=== PATIENT | female | born 1975 | race Caucasian/White ===

== ENCOUNTER 2016-10-29 14:42 | Emergency (ER) | payer OTHER ==
[~2016-10-29] VITALS: Ht 162.6 cm; Wt 87.5 kg
[2016-10-29 15:03] VITALS: BP 153/85
[2016-10-29] MEDS ORDERED: LOSA25TA22 PO (15:04)
--- NOTE | 2016-10-29 15:53 | NUR ---
Patient ambulated to bed 03.
--- NOTE | 2016-10-29 15:57 | NUR ---
41F BIB SELF C/O SHARP, LEFT MID-ABDOMINAL PAIN, NON-RADIATING, 8/10 X TODAY; PT STATES HAS NAUSEA, BUT DENIES V/D AT THIS TIME; ABDDOMEN SOFT, NON-TENDER, ACTIVE BOWEL SOUNDS X 4 QUADRANTS; PT A&OX4, PERRLA, BL LUNG SOUNDS CLEAR, RR EVEN/UNLABORED, SKIN IS WARM/DRY/INTACT AT THIS TIME; PT RESTING IN BED W/ HOB ELEVATED AND IN LOWEST POSITION; POSTIONED FOR COMFORT; ER MD MADE AWARE OF STATUS. WILL CONTINUE TO MONITOR.
--- NOTE | 2016-10-29 16:02 | NUR ---
Dr. Jung evaluating patient at bedside.
[2016-10-29] MEDS ORDERED: NACL 0.9% 1,000 ML IV ONE (16:20)
[2016-10-29] MEDS ORDERED: KETOROLAC 30 MG/ML VIAL IVP ONE (16:20)
[2016-10-29 16:50] LABS: BASOPHILS # (AUTO) 0.1 K/uL (0.00-0.22); BASOPHILS % (AUTO) 1.3 % (0.0-2.0); EOSINOPHILS # (AUTO) 0.1 K/uL (0-0.4); EOSINOPHILS % (AUTO) 0.8 % (0.0-4.0); HEMATOCRIT 35.4 % (36-48); HEMOGLOBIN 11.5 g/dL (12.0-16.0); LYMPHOCYTES # (AUTO) 2.4 K/uL (2.5-16.5); LYMPHOCYTES % (AUTO) 25.8 % (20.5-51.1); MEAN CORPUSCULAR HEMOGLOBIN 28 pg (27-31); MEAN CORPUSCULAR HGB CONC 33 g/dL (33-37); MEAN CORPUSCULAR VOLUME 86 fL (80-94); MONOCYTES # (AUTO) 0.5 K/uL (0.8-1.0); MONOCYTES % (AUTO) 5.4 % (1.7-9.3); NEUTROPHILS # (AUTO) 6.4 K/uL (1.8-7.7); NEUTROPHILS % (AUTO) 66.7 % (42.2-75.2); PLATELET COUNT (AUTO) 235 K/uL (140-450); RED CELL DISTRIBUTION WIDTH 14.3 % (11.6-13.7); WHITE BLOOD COUNT (AUTO) 9.5 K/uL (4.8-10.8)
[2016-10-29 17:03] LABS: BILIRUBIN,URINE NEGATIVE (NEGATIVE); BLOOD, URINE NEGATIVE (NEGATIVE); COLOR,URINE YELLOW (YELLOW); LEUKOCYTE ESTERASE ,URINE NEGATIVE (NEGATIVE); NITRITE, URINE NEGATIVE (NEGATIVE); PROTEIN,URINE NEGATIVE (NEGATIVE); UGLUCOSE NEGATIVE (NEGATIVE); UROBILINOGEN,URINE 0.2 EU/dL (0.2 - 1)
[2016-10-29 17:06] LABS: CALCIUM 8.9 mg/dL (8.5-10.1); CARBON DIOXIDE 28.4 mmol/L (21-32); CREATININE 0.9 mg/dL (0.6-1.3); POTASSIUM 3.4 mmol/L (3.5-5.1)
[2016-10-29 17:08] LABS: APPEARANCE,URINE SLIGHTLY CLOUDY (CLEAR)
[2016-10-29 17:11] LABS: BACTERIA,URINE 4+ /HPF (None Seen); RBC,URINE 0-5 /HPF (0-5)
[2016-10-29 17:13] LABS: ALBUMIN 3.6 g/dL (3.4-5.0); TOTAL BILIRUBIN 0.2 mg/dL (0.0-1.0); TOTAL PROTEIN, SERUM 7.2 g/dL (6.4-8.2)
--- NOTE | 2016-10-29 17:45 | NUR ---
IV removed, catheter intact and site benign. Applied folded 4x4 gauze and tape to stop bleeding. PT TOLERATED PROCEDURE WELL; WILL CONTINUE TO MONITOR.
[2016-10-29 17:52] VITALS: BP 138/74
--- NOTE | 2016-10-29 17:52 | NUR ---
Patient discharged with v/s stable. Written and verbal after care instructions given and explained. Patient alert, oriented and verbalized understanding of instructions. Ambulatory with to car. All questions addressed prior to discharge. ID band removed. Patient advised to follow up with PMD. Rx of NORCO, LEVAQUIN & MOTRIN given. Patient educated on indication of medication including possible reaction and side effects. Opportunity to ask questions provided and answered.
== END 2016-10-29 17:52 | disposition home or self-care (01) ==
LOC: MED 14:42
DX: N83.202 Unspecified ovarian cyst, left side (principal); N39.0 Urinary tract infection, site not specified; I10 Essential (primary) hypertension; Z90.89 Acquired absence of other organs; Z71.6 Tobacco abuse counseling; Z71.41 Alcohol abuse counseling and surveillance of alcoholic; Z71.51 Drug abuse counseling and surveillance of drug abuser
CPT/HCPCS: 36415; 74176; 80053; 81001; 81025; 83690; 84703; 85025; 87086; 96361; 96374; 99285; J1885; J7030

== ENCOUNTER 2020-12-04 06:47 | Day surgery (SDC) | payer OTHER, SELFPAY ==
[~2020-12-04] VITALS: Ht 162.6 cm; Wt 99.8 kg
[~2020-12-04 06:47] MED LIST: LOSA25TA43 PO
[2020-12-04] MEDS ORDERED: KETOROLAC 30 MG/ML VIAL ONE (09:45)
[2020-12-04] MEDS ORDERED: ONDANSETRON 4 MG/2 ML VIAL ONE (09:45)
[2020-12-04] MEDS ORDERED: SEVOFLURANE 250 ML BTL INH ONE (09:45)
[2020-12-04] MEDS ORDERED: DEXAMETHASONE 4 MG/ML VIAL ONE (09:45)
[2020-12-04] MEDS ORDERED: LIDOCAINE 2% 100 MG/5 ML SYR IVP ONE (09:45)
[2020-12-04] MEDS ORDERED: PROPOFOL 200 MG/20 ML VIAL IV ONE (09:45)
[2020-12-04] MEDS ORDERED: fentaNYL citrate 0.05 MG/ML VIAL ONE (09:45)
[2020-12-04] MEDS ORDERED: MIDAZOLAM 5 MG/1 ML VIAL ONE (09:45)
[2020-12-04] MEDS ORDERED: HYDROmorphone 1 MG/ML AMP IVP PRN (10:05)
[2020-12-04] MEDS ORDERED: diphenhydrAMINE 50 MG/ML VIAL IVP PRN (10:05)
[2020-12-04] MEDS ORDERED: ONDANSETRON 4 MG/2 ML VIAL IVP PRN (10:05)
[2020-12-04] MEDS ORDERED: LACTATED RINGERS 1,000 ML IV SCH (10:05)
[2020-12-04] MEDS ORDERED: MEPERIDINE 25 MG/ML SYR IVP PRN (10:05)
== END 2020-12-04 12:45 | disposition home or self-care (01) ==
LOC: MDS 06:47 → MMU 06:48 → MDS 12:45
PROVIDERS: ATTEND Obstetrics & Gynecology
DX: N92.0 Excessive and frequent menstruation with regular cycle (principal); I10 Essential (primary) hypertension; Z20.822 Contact with and (suspected) exposure to COVID-19; Z79.899 Other long term (current) drug therapy
CPT/HCPCS: 58563; J1100; J1885; J2001; J2250; J2405; J2704; J3010; U0003